=== PATIENT | male | born 1995 | race African-American/Black ===

== ENCOUNTER 2017-10-19 12:19 | Emergency (ER) | payer BC, OTHER, SELFPAY | END 2017-10-19 13:14 | disposition home or self-care (01) | LOC: BURERS 12:19 | DX: J01.90 Acute sinusitis, unspecified (principal) | CPT/HCPCS: 99283 ==

== ENCOUNTER 2020-09-23 23:25 | Emergency (ER) | payer OTHER, SELFPAY ==
[2020-09-23] MEDS ORDERED: Lidocaine 2% w/Epinephrine 1:200K 20 ML VIAL ONE (23:59)
[2020-09-23] MEDS ORDERED: Lidocaine 1% w/Epinephrine 1:100K 20 ML VIAL ONE (23:59)
[2020-09-24] MEDS ORDERED: TETANUS, DIPHTHERIA TOX,ADULT (TDVAX) 0.5 ML VIAL IM ONE (00:30)
[2020-09-24] MEDS ORDERED: Boostrix 0.5 ML (Tdap) VIAL ONE (00:31)
[2020-09-24] MEDS ORDERED: Bacitracin 1 PK ONE (00:33)
== END 2020-09-24 00:39 | disposition home or self-care (01) ==
LOC: BURERS 23:25
DX: S01.81XA Laceration without foreign body of other part of head, initial encounter (principal); Z23 Encounter for immunization; J45.909 Unspecified asthma, uncomplicated; W22.8XXA Striking against or struck by other objects, initial encounter
CPT/HCPCS: 12011; 90471; 90714; 90715

== ENCOUNTER 2021-09-19 14:03 | Emergency (ER) | payer BC, SELFPAY ==
[2021-09-19] MEDS ORDERED: Dexamethasone 10 MG/ML VIAL ONE (14:43)
== END 2021-09-19 16:07 | disposition home or self-care (01) ==
LOC: BURERS 14:03
DX: J45.901 Unspecified asthma with (acute) exacerbation (principal); F17.210 Nicotine dependence, cigarettes, uncomplicated
CPT/HCPCS: J1100; J7620

== ENCOUNTER 2022-08-13 14:49 | Emergency (ER) | payer BC, OTHER, SELFPAY | END 2022-08-13 15:44 | disposition home or self-care (01) | LOC: BURERS 14:49 | DX: S70.01XA Contusion of right hip, initial encounter (principal); M70.60 Trochanteric bursitis, unspecified hip; F17.210 Nicotine dependence, cigarettes, uncomplicated; V43.52XA Car driver injured in collision with other type car in traffic accident, initial encounter ==